=== PATIENT | female | born 1970 | race Caucasian/White ===

== ENCOUNTER 2016-06-19 09:46 | Day surgery (SDC) | payer OTHER ==
[~2016-06-19] VITALS: Ht 152.4 cm; Wt 125.0 kg
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
[~2016-06-19 09:46] MED LIST: CITA20TA PO; Lactated Ringer's 1,000 ML IV ONE; METH750T3 PO; WELLXL150T PO; [UNRECOGNIZED DRUG - CODE] PO
[2016-06-19] MEDS ORDERED: fentaNYL-PF 50 mCg/mL 2 mL Inj ONE (09:47)
[2016-06-19] MEDS ORDERED: Propofol 10,000 mCg/mL 20 mL Inj ONE (09:47)
[2016-06-19] MEDS ORDERED: LAMO150T2 PO (10:32)
[2016-06-19 10:42] VITALS: BP 121/75; PULSE 77; O2SAT 95
[2016-06-19] MEDS ORDERED: Ondansetron 2 mg/mL 2 mL Inj IVPUSH PRN (11:25)
[2016-06-19] MEDS ORDERED: MetoCLOpramide 5 mg/mL 2 mL Inj IVPUSH PRN (11:25)
[2016-06-19] MEDS ORDERED: Lactated Ringer's 1,000 ML IV SCH (11:25)
[2016-06-19 11:36] VITALS: BP 115/71; PULSE 78; RESP 16; O2SAT 93
[2016-06-19 11:47] VITALS: BP 128/77; PULSE 90; RESP 16; O2SAT 96
--- NOTE | 2016-06-19 11:51 | ENDO ---
[address] [address] ENDOSCOPY PROCEDURE PATIENT: FLAKITO JOHNSON : 1970 MR#: [id number] ADMIT: 06/19/2016 JOB ID: [id number] DATE OF SERVICE: 06/19/2016 PROCEDURE PERFORMED: Colonoscopy. INDICATIONS: Family history of colon cancer. ASA CLASSIFICATION, MALLAMPATI SCORE AND MEDICATIONS: The patient's ASA classification, Mallampati score and medications as per Dr. Jayy Bazan's anesthesia report. INSTRUMENT USED: [id number]. PREPARATION QUALITY: Fair. PROCEDURE DETAILS: After informed consent was obtained, the patient was brought into the GI suite, where she was placed on oxygen via nasal cannula and monitored with continuous pulse oximeter, telemetry, and blood pressure monitoring. A time-out was performed. Then, she was placed in the left lateral decubitus position and medications were administered for sedation. Digital rectal exam was performed which was unremarkable. The colonoscope was then inserted into the rectum and advanced under direct visualization to the cecum, which was identified by the presence of the ileocecal valve and appendiceal orifice. Once the cecum was reached, the colonoscope was withdrawn back into the rectum, as the mucosa and lumen were examined. In the rectum, retroflexion was performed. Following retroflexion, remaining air in the rectum was suctioned, and procedure was completed. FINDINGS: Normal exam from rectum to cecum. IMPRESSION: Normal colonoscopy. RECOMMENDATIONS: Repeat colonoscopy in five years. COMPLICATIONS: None. ESTIMATED BLOOD LOSS: Zero.
[2016-06-19 11:55] VITALS: BP 113/66; PULSE 80; RESP 14; O2SAT 95
--- NOTE | 2016-06-19 12:27 | PCM.ANEP2 ---
Post Anesthesia Evaluation ASA/CMS Post Anesthesia VS in Patient's Normal Range?: Yes Resp Stable; Airway Patent?: Yes CV Function & Hydration Stable: Yes Mental Status Recovered?: Yes Pain control Satisfactory?: Yes N/V Control Satisfactory?: Yes Jb Bazan MD Jun 19, 2016 12:27
--- NOTE | 2016-06-19 12:27 | PCM.ANEP1 ---
Post Anesthesia Phase 1 PACU Phase 1 Assessment Vital Signs Vital Signs Date Time Temp Pulse Resp B/P Pulse Ox O2 Delivery O2 Flow Rate FiO2 06/19/16 11:55 80 14 113/66 95 Room Air 06/19/16 11:47 90 16 128/77 96 Room Air 06/19/16 11:36 78 16 115/71 93 Room Air 06/19/16 10:42 77 121/75 95 Room Air Anesthetic Administered: GA Level of Alertness: Awake, talking NATARAJAN's with Equal Strength: Yes Pain: No Nausea or Vomiting: No Oxygen Delivery: Room Air Lungs: Normal Air Movement Jb Bazan MD Jun 19, 2016 12:27
== END 2016-06-19 23:59 | disposition home or self-care (01) ==
LOC: END 09:46
PROVIDERS: ATTEND Internal Medicine Gastroenterology
DX: Z12.11 Encounter for screening for malignant neoplasm of colon (principal); Z80.0 Family history of malignant neoplasm of digestive organs; F32.9 Major depressive disorder, single episode, unspecified; Z87.891 Personal history of nicotine dependence; Z79.899 Other long term (current) drug therapy
CPT/HCPCS: G0121; J2250; J7120

== ENCOUNTER 2016-11-14 03:58 | Emergency (ER) | payer OTHER ==
[~2016-11-14] VITALS: Ht 172.7 cm; Wt 120.5 kg
[~2016-11-14 03:58] MED LIST changes: +LAMO150T2 PO; -Lactated Ringer's 1,000 ML IV ONE; -METH750T3 PO; -[UNRECOGNIZED DRUG - CODE] PO
[2016-11-14 04:04] VITALS: BP 118/77; PULSE 82; RESP 18; O2SAT 98
[2016-11-14 04:55] LABS: BASOPHILS % (AUTO) 0.2 % (0-3); EOSINOPHILS % (AUTO) 2.1 % (0-5); MONOCYTES % (AUTO) 7.2 % (4-12); Mean Corpuscular Hemoglobin 20.7 pg (27.0-35.0); NEUTROPHILS % (AUTO) 65.1 % (40-74); Platelet Count 266 bil/L (150-400)
[2016-11-14 05:23] LABS: Magnesium 2.1 mg/dL (1.6-2.6)
--- NOTE | 2016-11-14 05:36 | ED.REPORT ---
HPI-Abd Pain F 40 and Over Date of Service Nov 14, 2016 ED Provider: Bradley Kiran MD A 46 year old female with a history of gastric bypass, anxiety, hernia and C- section presents to the ED complaining of abdominal pain. The pain is concentrated in the RUQ and has been present for five days. The pt woke up today to worsened "stabbing" pain and nausea. She denies recent weight loss. Nursing Notes Stated Complaint: R SIDE PAIN Chief Complaint: Female Abdominal Pain Nursing Notes Reviewed: Yes Allergies: Coded Allergies: No Known Allergies (Verified Allergy, Unknown, 11/05/15) Scheduled Bupropion-Expunged Drug, Do Not Renew! (Bupropion XL-Expunged Drug, Do Not Renew !) 150 Mg Tab.er.24 450 MG PO DAILY Citalopram Hydrobromide (Celexa) 20 Mg Tablet 20 MG PO DAILY Lamotrigine (Lamotrigine) 150 Mg Tablet 150 MG PO DAILY General Time Seen by MD: 04:38 Chief Complaint Abdominal pain Hx Obtained From: Patient Arrived By: Walk-in Sudden in Onset?: No Onset Occurred: 5 days ago Symptom Duration: Since onset Recent Healthcare: No recent hospitalization, Recent doctor visit Similar Sx Previous: No Past Medical History Past Medical History depression anxiety Reports: Depression Past Surgical History gastic bypass surgery 2004 acute small-bowel incarceration with internal hernia status post open repair with lysis of adhesions and internal hernia repair by in 2012 Reports: (x2) Smoking History Former Smoker Social History Other Social History: Good social support, , Local resident Ambulatory Status Independent Review of Systems Constitutional: Denies: Recent wt loss Respiratory: Denies: Non-productive cough, Shortness of breath Cardiovascular: Denies: Chest pain GI: Reports: Abdominal pain, Nausea Musculoskeletal: Denies: Back pain Complete sys rev & neg: except as marked. Physical Exam Vital Signs Vital Signs (First) Date Time Temp Pulse Resp B/P Pulse Ox O2 Delivery O2 Flow Rate FiO2 11/14/16 04:04 36.8 82 18 118/77 98 Room Air Initial VS: Reviewed, Vital signs normal General/Constitutional: Awake, Alert, Well hydrated Respiratory / Chest: Atraumatic, Breath sounds NL, Breath sounds = bilat, No respiratory distress Cardiovascular: Heart rate NL, Regular rhythm, Heart sounds NL Abdomen: Atraumatic, Soft RUQ abdominal tenderness, just under the ribs positive Higginbotham's sign Back: Atraumatic, Full range of motion Head / Eyes: Atraumatic, Normocephalic, PERRL, EOMI ENT: Atraumatic, Airway patent, Mucous membranes moist Skin: Atraumatic, Color NL, No rash, Warm, Dry Neurologic: Oriented X3, Speech NL, No motor deficits, No sensory deficits Neck: Atraumatic, Supple, Full range of motion Upper Extremity / MS: Atraumatic, Full range of motion Lower Extremity / Pelvis / MS: Atraumatic, Full range of motion Psychiatric: Affect NL, Mood NL Interpretation & Diagnostics Lab Results Interpretation Result Diagram: 11/14/16 0430 11/14/16 0430 Test 11/14/16 04:15 11/14/16 04:30 Hold Urine Received (Received) White Blood Count 5.6th/mm3 (3.8-10.1) Red Blood Count 4.25mil/mm3 (3.90-5.20) Hemoglobin 8.8g/dL (12.0-15.6) Hematocrit 30.6% (35.0-46.0) Mean Corpuscular Volume 72.0fL (81-100) Mean Corpuscular Hemoglobin 20.7pg (27.0-35.0) Mean Corpuscular Hemoglobin Concent 28.8% (32.0-37.0) Red Cell Distribution Width 19.0% (12.3-15.4) Platelet Count 266bil/L (150-400) Neutrophils (%) (Auto) 65.1% (40-74) Lymphocytes (%) (Auto) 25.2% (14-46) Monocytes (%) (Auto) 7.2% (4-12) Eosinophils (%) (Auto) 2.1% (0-5) Basophils (%) (Auto) 0.2% (0-3) Sodium Level 140mEq/L (134-144) Potassium Level 4.2mEq/L (3.5-5.2) Chloride Level 105mEq/L (97-108) Carbon Dioxide Level 23mmol/L (18-29) Blood Urea Nitrogen 11mg/dL (6-24) Creatinine 0.63mg/dL (0.57-1.00) Estimat Glomerular Filtration Rate 145mL/min (>59) Glucose Level 100mg/dL (60-99) Calcium Level 8.6mg/dL (8.5-10.1) Magnesium Level 2.1mg/dL (1.6-2.6) Total Bilirubin 0.2mg/dL (0.0-1.2) Aspartate Amino Transf (AST/SGOT) 16U/L (0-50) Alanine Aminotransferase (ALT/SGPT) 9U/L (0-32) Alkaline Phosphatase 107U/L (25-150) Total Protein 6.4g/dL (6.4-8.4) Albumin 3.6g/dL (3.4-5.0) Lipase 30U/L (13-60) Hold [place] Top Tube Received (Received) Lab Results Interpretation: Anemia X-Ray Chest Interpretation Chest Xray Interpretation: no acute findings Interpretation / Wet Read by: Wet read ED physician Re-Eval/Medical Decision Med Decision/Clinical Course 46-year-old female with intractable right upper quadrant abdominal pain of a couple of days' duration. She has essentially normal labs with the exception of anemia and a normal ultrasound. She received multiple doses of morphine without good relief of her discomfort. A CT scan of her abdomen and pelvis was ordered with IV contrast and her care will be turned over change of shift to Dr. Lemus for further evaluation and disposition. Source of Hx: Old records Re-Evaluation/Progress : Time of Eval: 06:58 Re-Evaluation/Progress Note: Pt rechecked, who is resting. She is still experiencing abdominal pain. The need for US is discussed. Counseled Regarding: Diagnosis, Lab results Discharge & Departure Primary Impression: RUQ abdominal pain Additional Impression: Anemia Anemia type: unspecified type Qualified Code: D64.9 - Anemia, unspecified Discharge Condition All VS Reviewed: Yes Condition: Stable Referrals: Maria G Martinez MD (PCP) Chantell Attestation Portions of this note were transcribed by Karo Duke. I, Dr. Kiran personally performed the history, physical exam and medical decision-making; I reviewed and confirmed the accuracy of the information in the transcribed note. Signed by: Chantell Levine, 11/14/2016 and 0654. copies to: Maria G Martinez MD, Howard L MD Nov 14, 2016 05:36 KARO DUKE Nov 14, 2016 05:41
[2016-11-14 07:12] VITALS: BP 114/64; PULSE 85; RESP 16; O2SAT 93
--- NOTE | 2016-11-14 08:56 | DRSVH ---
PROCEDURE: US ABDOMEN INDICATIONS: RUQ abd pain TECHNIQUE: Real-time scanning was performed of the abdominal and retroperitoneal organs, with image documentatio n. COMPARISON: None. FINDINGS: Liver length: 16.86 cm Gallbladder Wall Thickness: 2.40 mm CHD: Not seen CBD: Not seen Spleen length: 12.09 cm Right kidney length: 10.08 cm Left kidney length: 10.65 cm Aorta(Proximal): Not well-seen Aorta(Mid): 1.78 cm Aorta(Distal): 1.51 cm RCIA: 1.36 cm LCIA: 1.67 cm Liver: Liver is normal in size and hyperechoic in echotexture. Gallbladder: Distended, measuring 5.5 cm maximum. No visible stones or sludge. Wall thickness is nor mal. Biliary ducts: Intrahepatic bile ducts are non-dilated. Extrahepatic bile duct caliber is nonvisual ized. Normal is 6-7 mm or less in diameter, or 10 mm or less post-cholecystectomy. Pancreas: Visualized portions of the pancreas are sonographically normal. Body and tail are obscured by gas Spleen: Spleen is upper limits of normal in size and homogeneous in echotexture. Kidneys: Kidneys are normal in size and echotexture. No hydronephrosis or nephrolithiasis. No crystal d masses. Aorta: Visualized aorta is normal in caliber at less than 3 cm. Iliacs: Proximal common iliac arteries are normal in caliber at less than 2.5 cm. IVC: Intrahepatic inferior vena cava is patent. Miscellaneous: No free abdominal fluid. IMPRESSION: 1. Liver shows heterogeneous, hyperechoic coarse echotexture, probable hepatic steatosis but nonspeci fic. 2. Probable gallbladder hydrops by size. No cholelithiasis or abnormal wall thickening. 3. No distended bile ducts. 4. Pancreas is poorly visualized secondary to bowel gas which also obscures the proximal aorta. Note: Following review, verbal report to Dr. Kiran in the ED by the technologist at 0830 hrs. on Dictated by: Randy Westbrook M.D. on 11/14/2016 at 8:46 Approved by: Randy Westbrook M.D. on 11/14/2016 at 8:55
--- NOTE | 2016-11-14 09:07 | DRSVH ---
PROCEDURE: X-RAY CHEST ONE VIEW, PORTABLE ([id number]) INDICATIONS: CHEST PAIN TECHNIQUE: One view of the chest was acquired. COMPARISON: 07/27/2012 FINDINGS: Surgical changes and devices: None. Lungs and pleura: No pleural effusions or pneumothorax. Lungs are clear. Mediastinum: Mediastinal contours appear normal. Heart size is normal. Bones and chest wall: No suspicious bony lesions. Overlying soft tissues appear unremarkable. IMPRESSION: No acute cardiopulmonary abnormality or source of chest pain seen. Dictated by: Randy Westbrook M.D. on 11/14/2016 at 9:05 Approved by: Randy Westbrook M.D. on 11/14/2016 at 9:05
[2016-11-14] MEDS: fentaNYL-PF 50 mCg/mL 2 mL Inj IVPUSH PRN ×2 (09:26→10:45)
[2016-11-14] MEDS ORDERED: 0.9% Sodium Chloride 1,000 ML IV ONE (09:30)
[2016-11-14 10:47] VITALS: BP 105/70; PULSE 70
--- NOTE | 2016-11-14 10:57 | DRSVH ---
PROCEDURE: CT ABDOMEN AND PELVIS WITH CONTRAST ([id number]) INDICATIONS: RUQ abd pain, nl US TECHNIQUE: After the administration of oral and intravenous contrast, 5 mm thick sections acquired from the diap hragms to the symphysis. 5 mm thick coronal and sagittal reformats were performed. For radiation do se reduction, the following was used: automated exposure control, adjustment of mA and/or kV accordi ng to patient size. COMPARISON: [facility], CT, CT ABD PELVIS W CON, 11/05/2015, 20:23. FINDINGS: Image quality: Diagnostic. ABDOMEN: Lung bases: Lung bases are clear. Heart size is normal. Solid organs: Liver and spleen are normal in size and enhancement. Gallbladder is not enlarged. Bi liary system is non-dilated. Pancreas enhances normally. No adrenal nodules. Kidneys are normal in size and enhancement, without hydronephrosis. Peritoneum and bowel: Postoperative changes of the stomach and small bowel are again evident. Small bowel loops are nondilated. There is no bowel obstruction. Residual stool is seen throughout the co radha, more prominent within the proximal colon. Nonspecific fatty infiltration involving the wall of the terminal ileum is present without surrounding inflammation. No free fluid, loculated fluid colle ction or free air is present within the abdomen. There is a moderate-sized fat containing superior v entral hernia with probable additional scattered ventral hernia is present. Nodes and vessels: No retroperitoneal or mesenteric adenopathy. Aorta and inferior vena cava are no rmal in caliber. Bones: Straightening of the thoracolumbar spine is present. Age-appropriate degenerative changes are noted, most pronounced at the level of L2-L3. No suspicious osseous lesions or acute fractures are evident. PELVIS: Genitourinary: Bladder wall thickness is normal. The uterus is somewhat prominent in size, but not well characterized on this examination. There appear to be prominent nabothian cysts in the cervix. There is a right ovarian cyst present that measures up to approximately 2.4 cm in diameter. The lef t ovary is not enlarged were adequately seen. Miscellaneous: No inguinal hernias or adenopathy. No free fluid or loculated fluid collection is id entified. Bones: No suspicious bony lesions. No acute pelvic fractures or significant degenerative changes of the pelvis. IMPRESSION: 1. No CT findings are evident to explain the patient's right upper quadrant pain. 2. Postoperative changes of the stomach and small bowel. No bowel obstruction. 3. Mild fatty infiltration of the terminal ileum wall is similar to previous exams and of doubtful s ignificance acutely this may be related to chronic inflammation. However, an acute infectious proces s cannot be excluded. 4. Multiple fat containing supraumbilical ventral hernias. 5. 2.4 cm right ovarian cyst. Dictated by: Jason Voss M.D. on 11/14/2016 at 9:44 Approved by: Jason Voss M.D. on 11/14/2016 at 9:56
[2016-11-14] MEDS ORDERED: ONDA4TAB12 PO (11:40)
[2016-11-14 12:28] VITALS: BP_SYST 111
== END 2016-11-14 12:30 | disposition home or self-care (01) ==
LOC: SED 03:58
DX: R10.11 Right upper quadrant pain (principal); D64.9 Anemia, unspecified; F32.9 Major depressive disorder, single episode, unspecified; F41.9 Anxiety disorder, unspecified; Z87.891 Personal history of nicotine dependence; Z98.84 Bariatric surgery status
CPT/HCPCS: 36415; 71010; 74177; 76700; 80053; 81025; 83690; 83735; 85025; 96361; 96374; 96375; 96376; 99285; J2270; J3010; J7030; Q9967